=== PATIENT | female | born 2000 | race Two or more races ===

== ENCOUNTER 2021-01-09 13:51 | Outpatient (CLI) | payer OTHER ==
[2021-01-09 16:45] LABS: BASOPHILS # (AUTO) 0.1 10^3/uL (0.0-0.1); BASOPHILS % (AUTO) 0.9 %; EOSINOPHILS # (AUTO) 0.4 10^3/uL (0.0-0.7); EOSINOPHILS % (AUTO) 4.9 %; HCT - HEMATOCRIT 45.7 % (37.0-47.0); HGB - HEMOGLOBIN 15.2 g/dL (12.0-16.0); LYMPHOCYTES # (AUTO) 2.5 10^3/uL (1.5-3.5); LYMPHOCYTES % (AUTO) 34.3 %; MEAN CORPUSCULAR HEMOGLOBIN 29.2 pg (27.0-31.0); MEAN CORPUSCULAR HGB CONC 33.3 g/dL (32.0-36.0); MEAN CORPUSCULAR VOLUME 87.7 fL (81.0-99.0); MEAN PLATELET VOLUME 9.1 fL (7.9-10.8); MONOCYTES # (AUTO) 0.7 10^3/uL (0.0-1.0); NEUTROPHILS # (AUTO) 3.7 10^3/uL (1.5-6.6); NEUTROPHILS % (AUTO) 49.6 %; PLT - PLATELET COUNT 330 10^3/uL (130-450); RED BLOOD COUNT 5.21 10^6/uL (4.20-5.40); RED CELL DISTRIBUTION WIDTH 11.7 % (12.0-15.0); WHITE BLOOD COUNT 7.4 x10^3/uL (4.8-10.8)
[2021-01-09 16:54] LABS: ALBUMIN 4.6 g/dL (3.2-5.5); ALBUMIN/GLOBULIN RATIO 1.3 (1.0-2.2); BILIRUBIN,TOTAL 0.4 mg/dL (0.2-1.0); CALCIUM 10.1 mg/dL (8.5-10.3); POTASSIUM 3.5 mmol/L (3.5-5.0); TOTAL PROTEIN 8.1 g/dL (6.7-8.2)
[2021-01-09 17:11] LABS: THYROID STIMULATING HORMONE 0.95 uIU/mL (0.34-5.60)
== END 2021-01-09 13:52 | disposition home or self-care (01) ==
LOC: LAB.N 13:51
PROVIDERS: ATTEND Registered Nurse
DX: F41.8 Other specified anxiety disorders (principal); Z79.899 Other long term (current) drug therapy
CPT/HCPCS: 36415; 80050

== ENCOUNTER 2023-02-23 06:46 | Emergency (ER) | payer OTHER ==
[2023-02-23 07:26] LABS: HCG UR QUAL NEGATIVE
[2023-02-23 07:27] LABS: CLARITY,URINE HAZY (CLEAR); LEUKOCYTE ESTERASE, URINE NEGATIVE (NEGATIVE); NITRITE,URINE NEGATIVE (NEGATIVE); PH,URINE 6.5 PH (5.0-7.5); PROTEIN,URINE TRACE mg/dL (NEGATIVE); UROBILINOGEN,URINE 0.2 (NORMAL) E.U./dL (NORMAL)
[2023-02-23 07:28] LABS: BILIRUBIN,URINE NEGATIVE (NEGATIVE); GLUCOSE, URINE (UA) NEGATIVE (NEGATIVE); KETONES,URINE (UA) NEGATIVE (NEGATIVE); OCCULT BLOOD,URINE LARGE (NEGATIVE)
[2023-02-23 07:32] LABS: BASOPHILS # (AUTO) 0.1 10^3/uL (0.0-0.1); BASOPHILS % (AUTO) 0.7 %; EOSINOPHILS # (AUTO) 0.2 10^3/uL (0.0-0.7); EOSINOPHILS % (AUTO) 2.1 %; HCT - HEMATOCRIT 43.7 % (37.0-47.0); HGB - HEMOGLOBIN 14.7 g/dL (12.0-16.0); LYMPHOCYTES # (AUTO) 2.8 10^3/uL (1.5-3.5); LYMPHOCYTES % (AUTO) 31.7 %; MEAN CORPUSCULAR HEMOGLOBIN 28.6 pg (27.0-31.0); MEAN CORPUSCULAR HGB CONC 33.6 g/dL (32.0-36.0); MONOCYTES # (AUTO) 0.9 10^3/uL (0.0-1.0); MONOCYTES % (AUTO) 10.5 %; NEUTROPHILS # (AUTO) 4.8 10^3/uL (1.5-6.6); NEUTROPHILS % (AUTO) 54.8 %; PLT - PLATELET COUNT 357 10^3/uL (130-450); RED BLOOD COUNT 5.14 10^6/uL (4.20-5.40); RED CELL DISTRIBUTION WIDTH 11.7 % (12.0-15.0); WHITE BLOOD COUNT 8.8 x10^3/uL (4.8-10.8)
[2023-02-23 07:38] LABS: ALBUMIN 4.7 g/dL (3.2-5.5); ALBUMIN/GLOBULIN RATIO 1.2 (1.0-2.2); BILIRUBIN,TOTAL 0.4 mg/dL (0.2-1.0); CALCIUM 9.3 mg/dL (8.5-10.3); CREATININE 1.1 mg/dL (0.4-1.0); POTASSIUM 3.4 mmol/L (3.5-5.0); TOTAL PROTEIN 8.5 g/dL (6.7-8.2)
[2023-02-23] MEDS ORDERED: KETOROLAC 30 MG/ML VIAL IVP STA (07:45)
[2023-02-23 07:47] LABS: BACTERIA,URINE Moderate /HPF (None Seen); SQUAMOUS EPITHELIAL CELL,UR MOD Squamous (<= Few); WBC,URINE 0-3 /HPF (0-5)
[2023-02-23] MEDS ORDERED: iohexoL-300 100 ML VIAL ONE (07:53)
--- NOTE | 2023-02-23 08:26 | ED Physician Documentation ---
PD HPI ABD PAIN - Stated complaint Stated Complaint: ABD PX/FEMALE - Chief complaint Chief Complaint: Abd Pain - History obtained from History obtained from: Patient - History of Present Illness Timing - onset: Last night Timing - duration: Hours (12) Timing - details: Gradual onset Pain level max: 8 Pain level now: 6 Quality: Aching, Pain Location: RLQ Radiation: Right flank Improved by: Other (nothing) Worsened by: Other (nothing) Associated symptoms: Other (states did not urinate much this am). No: Fever, Nausea, Vomiting, Hematemesis, Diarrhea, Constipation, Melena, Hematochezia, Dysuria, Hematuria, Chest pain, Dizzy Review of Systems Constitutional: denies: Fever, Chills Nose: denies: Rhinorrhea / runny nose, Congestion GI: denies: Vomiting : reports: LMP (3 weeks ago). denies: Hematuria, Discharge, Now EGA Skin: denies: Rash Musculoskeletal: denies: Neck pain, Back pain, Extremity pain Neurologic: denies: Headache PD PAST MEDICAL HISTORY - Past Medical History Past Medical History: Yes [employer] EFFECTS: Ovarian cysts Psych: Depression, Anxiety - Past Surgical History Past Surgical History: No - Present Medications Home Medications: Ambulatory Orders Medication Instructions Recorded Confirmed Cefdinir 300 mg PO BID #20 cap 02/23/23 HYDROcod/ACETAM 5/325 [[place] 5/325] 1 - 2 ea PO Q6H PRN #10 tablet 02/23/23 - Allergies Allergies/Adverse Reactions: Allergies Allergy/AdvReac Type Severity Reaction Status Date / Time No Known Drug Allergies Allergy Verified 02/23/23 06:55 - Social History Does the pt smoke?: No Smoking Status: Never smoker Does the pt drink ETOH?: No Does the pt have substance abuse?: No - Immunizations Immunizations are current?: Yes - POLST Patient has POLST: No PD ED PE NORMAL - Vitals Vital signs reviewed: Yes - General General: Alert and oriented X 3, No acute distress - HEENT HEENT: PERRL, Moist mucous membranes - Neck Neck: Supple, no meningeal sign - Cardiac Cardiac: RRR, No murmur - Respiratory Respiratory: No respiratory distress, Clear bilaterally - Abdomen Abdomen: Soft, Non distended, Other (TTP RLQ, no peritoneal signs. o/w benign exam.) - Back Back: No CVA TTP, No spinal TTP - Derm Derm: Warm and dry, No rash - Extremities Extremities: No edema - Neuro Neuro: Alert and oriented X 3 - Psych Psych: Normal mood, Normal affect Results - Vitals Vitals: Vital Signs - 24 hr 02/23/23 02/23/23 02/23/23 06:52 07:16 09:51 Temperature 35.9 C L Heart Rate 82 57 L 78 Respiratory 20 16 16 Rate Blood Pressure 128/93 H 118/81 H 119/89 H O2 Saturation 98 100 99 Oxygen O2 Source Room air - Labs Labs: Laboratory Tests 02/23/23 02/23/23 02/23/23 06:45 06:45 07:07 WBC 8.8 RBC 5.14 Hgb 14.7 Hct 43.7 MCV 85.0 MCH 28.6 MCHC 33.6 RDW 11.7 L Plt Count 357 MPV 9.0 Neut # (Auto) 4.8 Lymph # (Auto) 2.8 [place] # (Auto) 0.9 Eos # (Auto) 0.2 Baso # (Auto) 0.1 Absolute Nucleated RBC 0.00 Nucleated RBC % 0.0 Sodium Potassium Chloride Carbon Dioxide Anion Gap BUN Creatinine Estimated GFR (MDRD) Glucose Calcium Total Bilirubin AST ALT Alkaline Phosphatase Total Protein Albumin Globulin Albumin/Globulin Ratio Lipase Urine Color YELLOW Urine Clarity HAZY Urine pH 6.5 Ur Specific [place] 1.020 Urine Protein TRACE Urine Glucose (UA) NEGATIVE Urine Ketones NEGATIVE Urine Occult Blood LARGE H Urine Nitrite NEGATIVE Urine Bilirubin NEGATIVE Urine Urobilinogen 0.2 (NORMAL) Ur Leukocyte Esterase NEGATIVE Urine RBC 11-25 H Urine WBC 0-3 Ur Squamous Epith Cells MOD Squamous H Urine Bacteria Moderate H Ur Microscopic Review INDICATED Urine Culture Comments NOT INDICATED Urine HCG, Qual NEGATIVE 02/23/23 07:07 WBC RBC Hgb Hct MCV MCH MCHC RDW Plt Count MPV Neut # (Auto) Lymph # (Auto) [place] # (Auto) Eos # (Auto) Baso # (Auto) Absolute Nucleated RBC Nucleated RBC % Sodium 139 Potassium 3.4 L Chloride 106 Carbon Dioxide 26 Anion Gap 7.0 BUN 13 Creatinine 1.1 H Estimated GFR (MDRD) 61 L Glucose 112 H Calcium 9.3 Total Bilirubin 0.4 AST 20 ALT 17 Alkaline Phosphatase 69 Total Protein 8.5 H Albumin 4.7 Globulin 3.8 Albumin/Globulin Ratio 1.2 Lipase 38 Urine Color Urine Clarity Urine pH Ur Specific [place] Urine Protein Urine Glucose (UA) Urine Ketones Urine Occult Blood Urine Nitrite Urine Bilirubin Urine Urobilinogen Ur Leukocyte Esterase Urine RBC Urine WBC Ur Squamous Epith Cells Urine Bacteria Ur Microscopic Review Urine Culture Comments Urine HCG, Qual - Rads (name of study) CT abdomen pelvis Relevant Findings:: Final report received, See rad report PD Medical Decision Making - ED course Complexity details: reviewed results, re-evaluated patient, considered differential, d/w patient ED course: Patient is well-appearing, nontoxic. Afebrile. Urinalysis shows hematuria, some bacteria. No ureteral stone visible on CT, but there is evidence of possible a sending infection. Therefore we will treat the patient with antibiotics. CBC is normal. Chemistry does not show any significant abnormalities. Urinalysis bacteria, squamous epithelial cells and red blood cells present. Patient was given IV Rocephin and will place on oral antibiotics. Patient counseled regarding signs and symptoms for which I believe and urgent re-evaluation would be necessary. Patient with good understanding of and agreement to plan and is comfortable going home at this time This document was made in part using voice recognition software. While efforts are made to proofread this document, sound alike and grammatical errors may occur. Departure - Departure Disposition: 01 Home, Self Care Clinical Impression: Pyelonephritis Condition: Good Instructions: ED Kidney Infec Female Follow-Up: your,doctor in 3 days if not better [Other] Prescriptions: Cefdinir 300 mg PO BID #20 cap HYDROcod/ACETAM 5/325 [[place] 5/325] 1 - 2 ea PO Q6H PRN #10 tablet PRN Reason: Pain Comments: [facility] [place] Please follow-up with your doctor for further care. Please return if you worsen. We are treating you for a kidney infection today. You can use the Vicodin as needed for any breakthrough pain. You can use Motrin as well at home. I am prescribing a short course of narcotic pain medication for you. These are potentially dangerous and addictive medications that should be used carefully. These medications may constipate you. Take an hksz-hig-iodiibd stool softener (docusate) twice daily with plenty of water while taking these medications. If you go 24 hours without a bowel movement, take hzoj-boq-syxwkuf miralax, per package instructions. Do not drink or drive while taking these medications. If you received narcotic or sedating medications while in the emergency department, do not drive for 24 hours. Store this medication in a safe, secure place and out of reach of children. It is a violation of federal law to give or sell this medication to another person or to use in a manner other than prescribed. The ED will not refill narcotic prescriptions, including prescriptions lost or stolen. To dispose of unwanted medications: 1. [facility] [address] in [place] has a medication drop box. They accept prescription medications (in pill form) Sunday through Sunday 9:00 a.m. to 5:00 p.m. 2. The [facility] [employer] accepts prescription medications (in pill form only) for disposal year round. Call for more information. 3. Contact the [facility] for the next [facility] sponsored prescription drug collection event. , [phone], or [phone]; PROCEDURE: ABDOMEN/PELVIS W INDICATIONS: RLQ abd pain CONTRAST: 100ml omni 300 TECHNIQUE: After the administration of weight appropriate dose of intravenous contrast, 5 mm thick sections acquired from the diaphragms to the symphysis. 5 mm thick coronal and sagittal reformats were acquired. For radiation dose reduction, the following was used: automated exposure control, adjustment of mA and/or kV according to patient size. COMPARISON: None FINDINGS: Image quality: Excellent. Lung bases and heart: Unremarkable. Liver: Tiny hepatic hypodensity too small to accurately characterize noted in the posterior right hepatic lobe (image 26/series 3). This likely represents a cyst or hemangioma. Gallbladder and biliary tree: Gallbladder appears unremarkable. No biliary ductal dilatation. Spleen: Unremarkable. Pancreas: Unremarkable. Adrenals: Unremarkable. Kidneys and ureters: There is minimal asymmetric enhancement of the right renal cortex and suggestion of mild right perinephric stranding and subtle hyperemia of the right ureter. No definite stone mass identified. No ming hydronephrosis. Minimal prominence of the right renal pelvis. Left kidney and ureter are unremarkable. Bowel and peritoneum: No bowel distension. No pathologic free fluid. Normal appendix. Lymph nodes: No central or retroperitoneal adenopathy. Vessels: Unremarkable. PELVIS Reproductive organs: Unremarkable as imaged. Bladder: Bladder appears unremarkable for degree of distention. No evidence for urinary bladder stone. Lymph nodes: Unremarkable. Bones: No aggressive osseous abnormality. Other: None. IMPRESSION: 1. Subtle asymmetric cortical enhancement of the right kidney relative to the left with minimal right perinephric and right ureteral inflammatory changes suggestive of infectious uropathy. No definite findings to suggest pyelonephritis. Minimal prominence of the right renal pelvis but otherwise no evidence for obstructive uropathy. Recommend clinical and laboratory correlation. 2. Normal appearance of the appendix. Discharge Date/Time: 02/23/23 10:26
--- NOTE | 2023-02-23 08:29 | CT Report ---
PROCEDURE: ABDOMEN/PELVIS W INDICATIONS: RLQ abd pain CONTRAST: 100ml omni 300 TECHNIQUE: After the administration of weight appropriate dose of intravenous contrast, 5 mm thick sections acqu ired from the diaphragms to the symphysis. 5 mm thick coronal and sagittal reformats were acquired. For radiation dose reduction, the following was used: automated exposure control, adjustment of mA and/or kV according to patient size. COMPARISON: None FINDINGS: Image quality: Excellent. Lung bases and heart: Unremarkable. Liver: Tiny hepatic hypodensity too small to accurately characterize noted in the posterior right hep atic lobe (image 26/series 3). This likely represents a cyst or hemangioma. Gallbladder and biliary tree: Gallbladder appears unremarkable. No biliary ductal dilatation. Spleen: Unremarkable. Pancreas: Unremarkable. Adrenals: Unremarkable. Kidneys and ureters: There is minimal asymmetric enhancement of the right renal cortex and suggestion of mild right perinephric stranding and subtle hyperemia of the right ureter. No definite stone mass identified. No ming hydronephrosis. Minimal prominence of the right renal pelvis. Left kidney and u reter are unremarkable. Bowel and peritoneum: No bowel distension. No pathologic free fluid. Normal appendix. Lymph nodes: No central or retroperitoneal adenopathy. Vessels: Unremarkable. PELVIS Reproductive organs: Unremarkable as imaged. Bladder: Bladder appears unremarkable for degree of distention. No evidence for urinary bladder stone . Lymph nodes: Unremarkable. Bones: No aggressive osseous abnormality. Other: None. IMPRESSION: 1. Subtle asymmetric cortical enhancement of the right kidney relative to the left with minimal right perinephric and right ureteral inflammatory changes suggestive of infectious uropathy. No definite f indings to suggest pyelonephritis. Minimal prominence of the right renal pelvis but otherwise no evid ence for obstructive uropathy. Recommend clinical and laboratory correlation. 2. Normal appearance of the appendix. Reviewed by: Brayan Frederick MD on 02/23/2023 8:28 AM PDT Approved by: Brayan Frederick MD on 02/23/2023 8:28 AM PDT Station ID: [id number]
[2023-02-23] MEDS ORDERED: iohexoL-300 100 ML VIAL IVP ONE (08:53)
[2023-02-23] MEDS ORDERED: cefTRIAXone 1 GM VIAL IVP STA (09:26)
[2023-02-23 09:52] VITALS: BP 119/89
== END 2023-02-23 10:26 | disposition home or self-care (01) ==
LOC: ED 06:46
DX: N12 Tubulo-interstitial nephritis, not specified as acute or chronic (principal)
CPT/HCPCS: 36415; 74177; 80053; 81001; 81025; 83690; 85025; 96374; 96375; 99284; Q9967; 81003; 87086

== ENCOUNTER 2023-03-06 09:16 | Outpatient (CLI) | payer OTHER | END 2023-03-06 09:17 | disposition home or self-care (01) | LOC: LAB 09:16 | PROVIDERS: ATTEND Registered Nurse | DX: Z12.39 Encounter for other screening for malignant neoplasm of breast (principal); Z80.3 Family history of malignant neoplasm of breast | CPT/HCPCS: 81162; 81599 ==